=== PATIENT | female | born 2000 | race Caucasian/White ===

== ENCOUNTER 2025-02-19 16:03 | Emergency (ER) | payer SELFPAY ==
[~2025-02-19] VITALS: Ht 165.1 cm; Wt 82.0 kg
[2025-02-19 16:08] VITALS: O2SAT 100
[2025-02-19 17:04] VITALS: BP 111/57; PULSE 100; RESP 16; TEMP 36.8; O2SAT 100
== END 2025-02-19 17:02 | disposition home or self-care (01) ==
LOC: ER 16:03
DX: R04.0 Epistaxis (principal)
CPT/HCPCS: 99283